=== PATIENT | female | born 1945 | race Caucasian/White ===

== ENCOUNTER 2016-04-28 18:10 | Emergency (ER) | payer OTHER ==
--- NOTE | ~2016-04-28 | CR157 ---
[facility] A Service of [facility] & [facility] RADIOLOGY TEXT RESULTS PATIENT: RUFINO BETH LOCATION: CFTX : 45 UNIT #: [id number] AGE: [address]: Katarina Hull MD SEX: F ORDER DR: [id number] [facility] [address] [place], [place] [address] [id number] E MR#: [id number] Acc #: [id number] NAME: RUFINO BETH : 1945 SEX: F STUDY DATE/TIME: 04/28/2016 17:32 UNIT: [facility] ROOM: STUDY DESCRIPTION: CR Humerus Min 2 View Rt Attending Physician: Katarina Hull M.D. Ordering Physician: Rehana De La Rosa P.A.-C. Primary Care Physician: Keely Ma M.D. MEDICAL IMAGING REPORT This report is preliminary unless electronic signature is present EXAM Right humerus 2 views, 04/28/2016 HISTORY Right humerus pain, swelling and bruising status post fall today. FINDINGS 2 views of the right humerus demonstrate a comminuted fracture through the surgical neck of the proximal right humerus. Vertical fracture also extends through the humeral head. The bones are normally mineralized. There is no soft tissue abnormality. IMPRESSION Comminuted fracture involving the proximal humerus. Dictated by... Werner Vanegas M.D. THIS IS AN ELECTRONICALLY VERIFIED REPORT Werner Vanegas M.D. at 04/29/2016 10:49 AM APOLLO/chalino TD: 04/28/2016 23:58 JOB #: [id number] MEDICAL IMAGING REPORT COPY
--- NOTE | ~2016-04-28 | CR230 ---
[facility] A Service of [facility] & [facility] RADIOLOGY TEXT RESULTS PATIENT: RUFINO BETH LOCATION: CFTX : 45 UNIT #: [id number] AGE: [address]: Katarina Hull MD SEX: F ORDER DR: [id number] [facility] [address] [place], [place] [address] [id number] E MR#: [id number] Acc #: [id number] NAME: RUFINO BETH : 1945 SEX: F STUDY DATE/TIME: 04/28/2016 17:10 UNIT: [facility] ROOM: STUDY DESCRIPTION: CR Shoulder Min 2 View Rt Attending Physician: Katarina Hull M.D. Ordering Physician: Rehana De La Rosa P.A.-C. Primary Care Physician: Keely Ma M.D. MEDICAL IMAGING REPORT This report is preliminary unless electronic signature is present EXAM Right shoulder, 3 views, 04/28/2016 HISTORY Right shoulder pain, swelling and bruising status post fall today. FINDINGS 3 views of the right shoulder demonstrate a comminuted fracture of the proximal right humerus. There is a fracture through the surgical neck of the proximal humerus which extends into the proximal right humeral diaphysis. Fracture of the humeral head is noted as well. No dislocation is seen. There is no soft tissue abnormality. IMPRESSION Comminuted fracture of the proximal right humerus. Dictated by... Werner Vanegas M.D. THIS IS AN ELECTRONICALLY VERIFIED REPORT Werner Vanegas M.D. at 04/29/2016 10:49 AM APOLLO/nixon TD: 04/29/2016 00:02 JOB #: [id number] MEDICAL IMAGING REPORT COPY
--- NOTE | ~2016-04-28 | CR173 ---
[facility] A Service of [facility] & [facility] RADIOLOGY TEXT RESULTS PATIENT: RUFINO BETH LOCATION: CFTX : 45 UNIT #: [id number] AGE: [address]: Katarina Hull MD SEX: F ORDER DR: [id number] [facility] [address] [place], [place] [address] [id number] E MR#: [id number] Acc #: [id number] NAME: RUFINO BETH : 1945 SEX: F STUDY DATE/TIME: 04/28/2016 17:12 UNIT: [facility] ROOM: STUDY DESCRIPTION: CR Knee 3 Views Rt Attending Physician: Katarina Hull M.D. Ordering Physician: Rehana De La Rosa P.A.-C. Primary Care Physician: Keely Ma M.D. MEDICAL IMAGING REPORT This report is preliminary unless electronic signature is present EXAM Right knee, 3 views, 04/28/2016 HISTORY Right knee pain, swelling and bruising status post fall today. FINDINGS 3 views of the right knee demonstrate total knee prosthesis which appears well seated. No fracture is seen. The bones appear somewhat osteopenic. There is no joint effusion. IMPRESSION Total knee prosthesis. No evidence of fracture. Dictated by... Werner Vaengas M.D. THIS IS AN ELECTRONICALLY VERIFIED REPORT Werner Vanegas M.D. at 04/29/2016 10:49 AM KRT/nixon TD: 04/29/2016 00:04 JOB #: [id number] MEDICAL IMAGING REPORT COPY
[~2016-04-28 18:10] MED LIST: ACTOS PO; ALPRAZOLAM PO; DARVOCET-N 1001 TAB PO; IBUPROFEN; LOTREL 10/20 MG1 CAP PO; MULTI-VITAMIN1 TAB PO; PROTONIX PO
== END 2016-04-28 20:36 | disposition home or self-care (01) ==
LOC: CFTX 18:10
DX: S42.211A Unspecified displaced fracture of surgical neck of right humerus, initial encounter for closed fracture (principal); W01.0XXA Fall on same level from slipping, tripping and stumbling without subsequent striking against object, initial encounter; Y92.009 Unspecified place in unspecified non-institutional (private) residence as the place of occurrence of the external cause; Z87.891 Personal history of nicotine dependence; Z88.0 Allergy status to penicillin
CPT/HCPCS: 73030; 73060; 73562; 96365; 96375; 96376; 99284; J1170; J2405; J2550

== ENCOUNTER → 2016-07-09 | Outpatient (CLI) | payer OTHER ==
--- NOTE | ~2016-07-09 | US140 ---
[facility] A Service of [facility] & [facility] RADIOLOGY TEXT RESULTS PATIENT: RUFINO BETH LOCATION: CNIV : 45 UNIT #: [id number] AGE: [address]: Tony Agrawal MD SEX: F ORDER DR: [id number] [facility] [address] [place], [place] [address] [id number] O MR#: [id number] Acc #: [id number] NAME: RUFINO BETH : 1945 SEX: F STUDY DATE/TIME: 07/09/2016 14:26 UNIT: [facility] ROOM: STUDY DESCRIPTION: UE Veins Unilat or Ltd Stdy Attending Physician: Tony Agrawal M.D. Referring Physician: Tony Agrawal M.D. Ordering Physician: Tony Agrawal M.D. Primary Care Physician: Glenna Patterson M.D. MEDICAL IMAGING REPORT This report is preliminary unless electronic signature is present EXAM Right upper extremity venous duplex, 07/09/2016. HISTORY Right upper extremity pain and swelling for 2 months after right shoulder replacement 2 months ago. Evaluate for deep vein thrombosis. FINDINGS [place]hton-scale images of the right upper extremity were obtained as well as Doppler waveform, spectral analysis and color flow Doppler imaging. There is normal blood flow and compressibility in the right internal jugular vein as well as right subclavian, axillary, brachial, cephalic and basilic veins. There is no evidence of deep vein thrombosis in the right upper extremity. IMPRESSION Negative right upper extremity venous duplex with no evidence of deep vein thrombosis. Dictated by... Werner Vanegas M.D. THIS IS AN ELECTRONICALLY VERIFIED REPORT Werner Vanegas M.D. at 07/10/2016 8:01 AM APOLLO/naseem TD: 07/09/2016 20:41 JOB #: [id number] MEDICAL IMAGING REPORT Page 1 of 1 COPY
== END | disposition home or self-care (01) ==
LOC: CNIV 14:12
DX: M79.601 Pain in right arm (principal); M79.89 Other specified soft tissue disorders
CPT/HCPCS: 93971